=== PATIENT | female | born 1970 | race Caucasian/White ===

== ENCOUNTER 2017-04-08 18:15 | Inpatient (IN) | payer MEDICAID, MEDICARE ==
[2017-04-08] MEDS ORDERED: Sodium Chloride 0.9% 1,000 ML IV ONE (18:42)
[2017-04-08 19:12] LABS: % BASOPHILS 0.9 % (0.0-2.0); % EOSINOPHILS 0.6 % (0.0-5.0); % LYMPHOCYTES 34.7 % (20.0-50.0); % MONOCYTES 12.9 % (2.0-10.0); % NEUTROPHILS 50.9 % (40.0-80.0); HEMATOCRIT 40.4 % (35.0-45.0); HEMOGLOBIN 13.4 gm/dL (11.7-15.5); MEAN CORPUSCULAR HEMOGLOBIN 28.9 pg (27.0-31.0); MEAN CORPUSCULAR HGB CONC 33.2 pg (28.0-36.0); MEAN PLATELET VOLUME 7.3 fl; NEUTROPHILE ABSOLUTE 2.6 Th/cmm (1.8-8.0); PLATELET COUNT 281 Th/cmm (150-400); RED BLOOD COUNT 4.65 Mil/cmm (3.80-5.10); RED CELL DISTRIBUTION WIDTH 13.2 % (11.5-20.0); WHITE BLOOD COUNT 4.9 Th/cmm (4.8-10.8)
[2017-04-08 19:28] LABS: ALB/GLOB RATIO 1.5 (1.0-1.8); ALKALINE PHOSPHATASE 82 U/L (34-104); AMYLASE SERUM 49 U/L (29-103); ANION GAP 9.6 (7.0-16.0); BILIRUBIN,TOTAL 0.2 mg/dL (0.3-1.0); BUN - UREA NITROGEN 25 mg/dL (7-25); CALCIUM SERUM 9.5 mg/dL (8.6-10.3); CARBON DIOXIDE 24.1 mEq/L (21.0-31.0); CHLORIDE 105 mEq/L (98-107); CREATININE - SERUM 0.5 mg/dL (0.6-1.2); GLUCOSE 106 mg/dL (70-105); SGOT 35 U/L (13-39); SGPT/ALT 18 U/L (7-52); SODIUM SERUM 136 mEq/L (136-145)
[2017-04-08 19:32] LABS: POTASSIUM SERUM 2.7 mEq/L (3.5-5.1)
[2017-04-08] MEDS ORDERED: Potassium Chloride Elixir 20 mEq /15 mL UDC PO ONE (19:36)
--- NOTE | 2017-04-08 19:47 | ED Physician Chart ---
Chief Complaint/HPI - Patient Information Date Seen:: 04/08/17 Time Seen:: 19:00 Chief Complaint:: vomiting History of Present Illness:: THIS IS A 47 YO MICROCEPHIALIC FEMALE WITH PROFOUND MENTAL RETARDATION SENT HERE FROM THE LONG-TERM FOR EVALUATION AND TREATMENT. SHE HAS A HISTORY OF GERD, GASTRITIS,ANEMIA AND SEIZURE DISORDER. Allergies:: Allergies Allergy/AdvReac Type Severity Reaction Status Date / Time bug bites Allergy Uncoded 04/08/17 18:31 chocolate Allergy Uncoded 04/08/17 18:32 Vitals:: Vital Signs - 8 hr 04/08/17 18:32 Temp 99.2 F HR 94 RR 19 BP 112/60 O2 Sat % 100 Historian:: Medical Records Review:: Nurse's Note Reviewed, Old Chart Reviewed, Transfer documents Reviewed Review of Systems - Review of Systems General/Constitutional: No fever, No chills, No weight loss, No weakness, No diaphoresis, No edema, No loss of appetite, Other (THIS PATIENT IS UNABLE TO GIVE A REVIEW OF SYSTEMS.) Skin: No skin lesions, No rash, No bruising Head: No headache, No light-headedness Eyes: No loss of vision, No pain, No diplopia ENT: No earache, No nasal drainage, No sore throat, No tinnitus Neck: No neck pain, No swelling, No thyromegaly, No stiffness, No mass noted Cardio Vascular: No chest pain, No palpitations, No PND, No orthopnea, No edema Pulmonary: No SOB, No cough, No sputum, No wheezing GI: No nausea, No vomiting, No diarrhea, No pain, No melena, No hematochezia, No constipation, No hematemesis G/U: No dysuria, No frequency, No hematuria Musculoskeletal: No bone or joint pain, No back pain, No muscle pain Endocrine: No polyuria, No polydipsia Psychiatric: No prior psych history, No depression, No anxiety, No suicidal ideation Hematopoietic: No bruising, No lymphadenopathy Allergic/Immuno: No urticaria, No angioedema Neurological: No syncope, No focal symptoms, No weakness, No paresthesia, No headache, No seizure, No dizziness, No confusion, No vertigo Past Medical History - Past Medical History Obtainable: Yes Past Medical History: PUD/GERD, Seizures, Dementia Family History: None Social History: Non Smoker, No Alcohol, No Drug Use, Care Facility Surgical History: None Psychiatricy History: Dementia Medication: Reviewed Family Medical History - Family Member Mother History Unknown: Yes Physical Exam - Physical Examination General/Constitutional: Awake, Well-developed, well-nourished, Alert, No distress, GCS 15, Non-toxic appearing, Ambulatory Other Gen/Cons comments:: NON-VERBAL AND MENTALLY NOT RESPONSE TO VOICE OR SIGNS OF COMMUNICATION. Head: Atraumatic Eyes: Lids, conjuctiva normal, PERRL, EOMI Skin: Nl inspection, No rash, No skin lesions, No ecchymosis, Well hydrated, No lymphadenopathy ENMT: External ears, nose nl, Nasal exam nl, Lips, teeth, gums nl Neck: Nontender, Full ROM w/o pain, No JVD, No nuchal rigidity, No bruit, No mass, No stridor Respiratory: Nl effort/Exclusion, Clear to Auscultation, No Wheeze/Rhonchi/Rales Cardio Vascular: RRR, No murmur, gallop, rubs, NL S1 S2 GI: No tenderness/rebounding/guarding, No organomegaly, No hernia, Normal BS's, Nondistended, No mass/bruits, No McBurney tenderness : No CVA tenderness Extremities: No tenderness or effusion, Full ROM, normal strength in all extremities, No edema, Normal digits & nails Other Extremities comments:: EXTREMITIES ARE CONTRACTED WITH SEVERE MUSCLE LOSS. Neuro/Psych: Alert/oriented, DTR's symmetric, Normal sensory exam, Normal motor strength, Judgement/insight normal, Mood normal, Normal gait, No focal deficits Misc: normal gait, Normal back, No paraspinal tenderness Labs/Radiology/EKG Results - Lab Results Results: Laboratory Tests 04/08/17 04/08/17 04/08/17 19:04 19:04 19:04 WBC 4.9 RBC 4.65 Hgb 13.4 Hct 40.4 MCV 87.0 MCH 28.9 MCHC Differential 33.2 RDW 13.2 Plt Count 281 MPV 7.3 Neutrophils % 50.9 Lymphocytes % 34.7 Monocytes % 12.9 H Eosinophils % 0.6 Basophils % 0.9 Sodium 136 Potassium 2.7 L* Chloride 105 Carbon Dioxide 24.1 Anion Gap 9.6 BUN 25 Creatinine 0.5 L Est GFR ( Amer) > 60.0 Est GFR (Non-Af Amer) > 60.0 BUN/Creatinine Ratio 50.0 Glucose 106 H Whole Bld Lactic Acid Calcium 9.5 Total Bilirubin 0.2 L AST 35 ALT 18 Alkaline Phosphatase 82 Total Protein 7.5 Albumin 4.5 Globulin 3.0 Albumin/Globulin Ratio 1.5 Amylase 49 Lipase Serum , Qual NEGATIVE 04/08/17 04/08/17 19:04 19:04 WBC RBC Hgb Hct MCV MCH MCHC Differential RDW Plt Count MPV Neutrophils % Lymphocytes % Monocytes % Eosinophils % Basophils % Sodium Potassium Chloride Carbon Dioxide Anion Gap BUN Creatinine Est GFR ( Amer) Est GFR (Non-Af Amer) BUN/Creatinine Ratio Glucose Whole Bld Lactic Acid 0.70 Calcium Total Bilirubin AST ALT Alkaline Phosphatase Total Protein Albumin Globulin Albumin/Globulin Ratio Amylase Lipase 19 Serum , Qual Assessment - Assessment General Assessment: VOMITING ED Septic Shock - . Is Septic Shock (SBP<90, OR Lactate>4 mmol\L) present?: No - <6hrs of presentation: Vital Signs: Vital Signs - 8 hr 04/08/17 18:32 Temp 99.2 F HR 94 RR 19 BP 112/60 O2 Sat % 100 Reassessment (Disposition) - Reassessment Reassessment Condition:: Improved - Diagnosis Diagnosis:: HYPOKALEMIA DIARRHEA DEMENTIA - Patient Disposition Discharge/Transfer:: Acute Care w/in this hosp Admitting Medical Physician:: Roge Tanner Condition at Disposition:: Improved ED Discharge Plan - Patient Disposition Admit/Discharge/Transfer: Acute Care w/in this hosp Condition at Disposition: Improved
[2017-04-08] MEDS ORDERED: Potassium Chloride Elixir 20 mEq /15 mL UDC ONE (20:00)
[2017-04-08 21:20] LABS: ANION GAP 8.7 (7.0-16.0); BUN - UREA NITROGEN 25 mg/dL (7-25); CALCIUM SERUM 9.5 mg/dL (8.6-10.3); CARBON DIOXIDE 25.4 mEq/L (21.0-31.0); CHLORIDE 105 mEq/L (98-107); CREATININE - SERUM 0.5 mg/dL (0.6-1.2); GLUCOSE 103 mg/dL (70-105); POTASSIUM SERUM 3.1 mEq/L (3.5-5.1); SODIUM SERUM 136 mEq/L (136-145)
[2017-04-08] MEDS ORDERED: D5-0.45NS 1,000 ML IV SCH (21:50)
[2017-04-09] MEDS ORDERED: Non-Formulary Item 1 EA (Oxybenzone/Padimate O [Sunscreen Spf8 Lotion] 120 ML) TP PRN (08:01)
[2017-04-09] MEDS ORDERED: Fleet Enema 135 mL RC PRN (08:01)
--- NOTE | 2017-04-09 08:49 | Internal Medicine Prog Note ---
Internal Medicine Subjective - Subjective Service Date: 04/09/17 ([id number]) Internal Medicine Objective - Results Result Diagrams: 04/08/17 19:04 04/08/17 21:00 Recent Labs: Laboratory Last Values WBC 4.9 Th/cmm (4.8-10.8) 04/08/17 19:04 RBC 4.65 Mil/cmm (3.80-5.10) 04/08/17 19:04 Hgb 13.4 gm/dL (11.7-15.5) 04/08/17 19:04 Hct 40.4 % (35.0-45.0) 04/08/17 19:04 MCV 87.0 fl (81-100) 04/08/17 19:04 MCH 28.9 pg (27.0-31.0) 04/08/17 19:04 MCHC Differential 33.2 pg (28.0-36.0) 04/08/17 19:04 RDW 13.2 % (11.5-20.0) 04/08/17 19:04 Plt Count 281 Th/cmm (150-400) 04/08/17 19:04 MPV 7.3 fl 04/08/17 19:04 Neutrophils % 50.9 % (40.0-80.0) 04/08/17 19:04 Lymphocytes % 34.7 % (20.0-50.0) 04/08/17 19:04 Monocytes % 12.9 % (2.0-10.0) H 04/08/17 19:04 Eosinophils % 0.6 % (0.0-5.0) 04/08/17 19:04 Basophils % 0.9 % (0.0-2.0) 04/08/17 19:04 Sodium 136 mEq/L (136-145) 04/08/17 21:00 Potassium 3.1 mEq/L (3.5-5.1) L 04/08/17 21:00 Chloride 105 mEq/L (98-107) 04/08/17 21:00 Carbon Dioxide 25.4 mEq/L (21.0-31.0) 04/08/17 21:00 Anion Gap 8.7 (7.0-16.0) 04/08/17 21:00 BUN 25 mg/dL (7-25) 04/08/17 21:00 Creatinine 0.5 mg/dL (0.6-1.2) L 04/08/17 21:00 Est GFR ( Amer) > 60.0 ml/min (>90) 04/08/17 21:00 Est GFR (Non-Af Amer) > 60.0 ml/min 04/08/17 21:00 BUN/Creatinine Ratio 50.0 04/08/17 21:00 Glucose 103 mg/dL (70-105) 04/08/17 21:00 Whole Bld Lactic Acid 0.70 mmol/L (0.60-1.99) 04/08/17 19:04 Calcium 9.5 mg/dL (8.6-10.3) 04/08/17 21:00 Total Bilirubin 0.2 mg/dL (0.3-1.0) L 04/08/17 19:04 AST 35 U/L (13-39) 04/08/17 19:04 ALT 18 U/L (7-52) 04/08/17 19:04 Alkaline Phosphatase 82 U/L (34-104) 04/08/17 19:04 Total Protein 7.5 gm/dL (6.0-8.3) 04/08/17 19:04 Albumin 4.5 gm/dL (3.7-5.3) 04/08/17 19:04 Globulin 3.0 gm/dL 04/08/17 19:04 Albumin/Globulin Ratio 1.5 (1.0-1.8) 04/08/17 19:04 Amylase 49 U/L (29-103) 04/08/17 19:04 Lipase 19 U/L (11-82) 04/08/17 19:04 Serum , Qual NEGATIVE (NEGATIVE) 04/08/17 19:04 Stool Occult Blood NEGATIVE (NEGATIVE) 04/08/17 21:30 - Physical Exam Vitals and I&O: Vital Signs Temp 97.8 F 04/09/17 04:21 Pulse 90 04/09/17 04:21 Resp 18 04/09/17 04:21 BP 122/58 04/09/17 04:21 Pulse Ox 97 04/09/17 04:21 Intake & Output 04/08/17 04/09/17 04/09/17 18:59 06:59 18:59 Weight (lbs) 103 lb 4.8 oz 98 lb Other: # Voids 1 # Bowel Movements 0 Stool Characteristics Liquid Liquid Brown Brown Active Medications: Current Medications Acetaminophen (Tylenol) 650 mg PO Q4HR PRN PRN Reason: TEMP >100 Stop: 06/08/17 08:00 Ascorbic Acid (Vitamin C) 500 mg PO BID [facility] Stop: 06/08/17 08:59 Bisacodyl (Dulcolax 10 Mg Supp) 10 mg RC PRN PRN PRN Reason: IF MOM INEFFECTIVE Stop: 06/08/17 08:00 Ferrous Sulfate (Iron) 325 mg PO BID [facility] Stop: 06/08/17 08:59 Dextrose/Sodium Chloride (D5-0.45ns) 1,000 mls @ 100 mls/hr IV .Q10H [facility] Stop: 06/07/17 21:49 Last Admin: 04/08/17 23:44 Dose: 100 mls/hr Magnesium Hydroxide (Milk Of Magnesia) 30 ml PO HS [facility] Stop: 06/08/17 20:59 Miscellaneous (Calcium Carb/Vitamin D3/Vit K1 [Calcium + D Soft Chewable Tab]) 1 each PO BID [facility] Stop: 06/08/17 08:59 Miscellaneous (Esomeprazole Magnesium [Nexium]) 40 mg PO HS [facility] Stop: 06/08/17 20:59 Miscellaneous (Multivitamin [Tab-A-Ronnie]) 1 tab PO DAILY [facility] Stop: 06/08/17 08:59 Sodium Phosphate (Fleet Enema) 135 ml RC PRN PRN PRN Reason: IF DULCOLAX INEFFECTIVE Stop: 06/08/17 08:00 Internal Medicine Assmt/Plan - Assessment Assessment: GASTROENTERITIS HYPOKALEMIA SEIZURES GERD VOMITING
[2017-04-09] MEDS ORDERED: Ipratropium Neb 0.5 mg/2.5 mL UD IH PRN (08:50)
[2017-04-09] MEDS ORDERED: Albuterol Nebulizer 2.5mg/3mL IH PRN (08:50)
[2017-04-09] MEDS ORDERED: MULTIVITAMIN PO SCH (09:00)
[2017-04-09 09:06] LABS: ANION GAP 6.7 (7.0-16.0); BUN - UREA NITROGEN 24 mg/dL (7-25); CALCIUM SERUM 8.8 mg/dL (8.6-10.3); CARBON DIOXIDE 23.5 mEq/L (21.0-31.0); CHLORIDE 109 mEq/L (98-107); CREATININE - SERUM 0.5 mg/dL (0.6-1.2); GLUCOSE 109 mg/dL (70-105); POTASSIUM SERUM 3.2 mEq/L (3.5-5.1); SODIUM SERUM 136 mEq/L (136-145)
[2017-04-09 09:20] LABS: % BASOPHILS 0.8 % (0.0-2.0); % MONOCYTES 13.7 % (2.0-10.0); % NEUTROPHILS 45.5 % (40.0-80.0); HEMOGLOBIN 11.5 gm/dL (11.7-15.5); MEAN CELL VOLUME 86.9 fl (81-100); MEAN CORPUSCULAR HEMOGLOBIN 29.4 pg (27.0-31.0); MEAN CORPUSCULAR HGB CONC 33.8 pg (28.0-36.0); MEAN PLATELET VOLUME 7.5 fl; NEUTROPHILE ABSOLUTE 2.2 Th/cmm (1.8-8.0); PLATELET COUNT 269 Th/cmm (150-400); RED BLOOD COUNT 3.93 Mil/cmm (3.80-5.10); WHITE BLOOD COUNT 4.6 Th/cmm (4.8-10.8)
[2017-04-09 09:24] LABS: HEMATOCRIT 34.2 % (35.0-45.0)
[2017-04-09] MEDS: Multivitamin Tab PO SCH (09:48)
[2017-04-09] MEDS: Ferrous Sulfate 325 MG TAB PO SCH ×2 (09:48→16:45)
[2017-04-09] MEDS: Calcium Carb/Vit D 500 mg/200 U Tab PO SCH ×2 (09:48→16:45)
--- NOTE | 2017-04-09 10:34 | History & Physical ---
ADMIT DATE: 04/09/2017 CHIEF COMPLAINT: Vomiting and diarrhea. HISTORY OF PRESENT ILLNESS: This is a 47-year-old female who is a resident of [facility] who has a 1-day history of vomiting and diarrhea. The patient did not have any fevers in the intermediate. For this reason, the patient is now admitted to the med/surg unit. PAST MEDICAL HISTORY: GERD, seizures, dementia. SOCIAL HISTORY: The patient is a intermediate resident, requiring 24-hour nursing care. PAST SURGICAL HISTORY: Unknown. MEDICATIONS: Please see medication reconciliation sheet. FAMILY HISTORY: Noncontributory. REVIEW OF SYSTEMS: Unable to obtain due to patient's mental status. PHYSICAL EXAMINATION: GENERAL: The patient is well developed, well nourished, no acute distress. VITAL SIGNS: Temperature , heart rate 90, blood pressure 122/58, O2 97%. HEENT: Head; normocephalic, atraumatic. NECK: Supple. No mass. LUNGS: Clear bilaterally. HEART: Regular rhythm. ABDOMEN: Soft, nontender. ASSESSMENT: Vomiting, intractable diarrhea, hypokalemia, seizures, gastroesophageal reflux disease. PLAN: The patient to be admitted to the med/surg unit. We will collect stool for C. diff and stool for O and P, keep the patient on IV fluids for hydration. We will place the patient on Cipro IV. We will monitor the patient's electrolyte levels. [facility]# [id number]
--- NOTE | 2017-04-09 10:58 | Diagnostic Imaging Report ---
KUB single view HISTORY: Constipation COMPARISON: None FINDINGS: Diffuse gaseous distended loops of bowel are seen. No significant stool identified. Distended stomach is also noted. Spinal scoliosis is noted. 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 IMPRESSION: Diffuse gaseous distended loops of bowel probably due to a chronic generalized ileus. No significant stool identified.
--- NOTE | 2017-04-09 11:04 | Consultation ---
DATE OF CONSULTATION: 04/09/2017 REQUESTING PHYSICIAN: Dr. Roge Tanner. REASON FOR CONSULTATION: Nausea, vomiting and diarrhea. HISTORY OF PRESENT ILLNESS: A 47-year-old female with history of mental retardation and cerebral palsy who is nonverbal, admitted for nausea, vomiting and diarrhea from her nursing facility. PAST MEDICAL HISTORY: As above, also notable for seizure disorder, GERD, and encephalopathy and chronic anemia. ALLERGIES: Bug bites and chocolate. CURRENT MEDICATIONS: Here are Tylenol, albuterol, vitamin C, Dulcolax suppository p.r.n., Os-Cristian with vitamin D, Cipro, iron, D5 1/2 NS, IV fluids, Atrovent, milk of magnesia, multivitamin, Protonix, and Fleet enema p.r.n. SOCIAL HISTORY: No known tobacco, alcohol or drugs. [facility] resident. FAMILY HISTORY: Noncontributory. REVIEW OF SYSTEMS: Negative. PHYSICAL EXAMINATION: VITAL SIGNS: Temperature of 97.8, blood pressure is 122/58, pulse is 90, respirations 18, O2 sat is 97%. GENERAL: The patient is well-developed, chronically ill-appearing, small statured female, in no acute distress. CARDIOVASCULAR: Regular rate and rhythm. LUNGS: With occasional rhonchi at the base. ABDOMEN: Soft, nontender, nondistended. EXTREMITIES: Contractured, but no edema. RECTAL: Deferred. LABORATORY DATA AND IMAGING: WBC is 4.9, hemoglobin 13.4, platelet count is 281, creatinine is normal. Liver enzymes are normal. Stool OB is negative. Serum test is negative. Amylase and lipase are normal. IMPRESSION: 1. Nausea, vomiting and diarrhea, rule out acute gastroenteritis. Also, rule out partial bowel obstruction or fecal impaction. 2. Mentally retardation with encephalopathy and seizure disorder. 3. History of gastroesophageal reflux disease and gastritis. RECOMMENDATIONS: 1. We will obtain a KUB to rule out fecal impaction. 2. Clear liquid diet for now. 3. Protonix. 4. Antiemetics. 5. Check stool studies, if diarrhea persists. Thank you, Dr. Roge Tanner, for involving us in the care of your patient. If you have any further questions, please call us. JOB# [id number]
[2017-04-09] MEDS: Ciprofloxacin 200mg Premix PB 200 MG/100 ML BAG IV SCH ×2 (11:05→20:45)
[2017-04-09] MEDS ORDERED: guaiFENesin 200 MG/10 ML UDC PO PRN (11:55)
[2017-04-09] MEDS: D5-0.45NS 1,000 ML IV SCH (13:30)
[2017-04-09] MEDS: Magnesium Hydroxide (MOM) 30 mL UDC PO SCH (20:46)
[2017-04-09] MEDS: Pantoprazole 40 mg EC Tab PO SCH (20:46)
[2017-04-09] MEDS ORDERED: Non-Formulary Item 1 EA (Esomeprazole Magnesium [Nexium] 40 MG) PO SCH (21:00)
[2017-04-10] MEDS: D5-0.45NS 1,000 ML IV SCH ×2 (03:38→21:09)
[2017-04-10 07:09] LABS: % BASOPHILS 0.8 % (0.0-2.0); % EOSINOPHILS 1.2 % (0.0-5.0); % LYMPHOCYTES 41.6 % (20.0-50.0); % MONOCYTES 12.6 % (2.0-10.0); % NEUTROPHILS 43.8 % (40.0-80.0); HEMATOCRIT 32.4 % (35.0-45.0); HEMOGLOBIN 11.1 gm/dL (11.7-15.5); MEAN CELL VOLUME 85.2 fl (81-100); MEAN CORPUSCULAR HEMOGLOBIN 29.2 pg (27.0-31.0); MEAN CORPUSCULAR HGB CONC 34.3 pg (28.0-36.0); MEAN PLATELET VOLUME 7.5 fl; NEUTROPHILE ABSOLUTE 1.9 Th/cmm (1.8-8.0); PLATELET COUNT 251 Th/cmm (150-400); WHITE BLOOD COUNT 4.3 Th/cmm (4.8-10.8)
[2017-04-10 07:41] LABS: ANION GAP 6.6 (7.0-16.0); BUN - UREA NITROGEN 7 mg/dL (7-25); BUN/CREATININE RATIO 17.5; CALCIUM SERUM 8.9 mg/dL (8.6-10.3); CARBON DIOXIDE 25.4 mEq/L (21.0-31.0); CHLORIDE 108 mEq/L (98-107); CREATININE - SERUM 0.4 mg/dL (0.6-1.2); GLUCOSE 106 mg/dL (70-105); SODIUM SERUM 137 mEq/L (136-145)
[2017-04-10] MEDS: Calcium Carb/Vit D 500 mg/200 U Tab PO SCH ×2 (09:41→16:39)
[2017-04-10] MEDS: Ciprofloxacin 200mg Premix PB 200 MG/100 ML BAG IV SCH ×2 (09:41→21:13)
[2017-04-10] MEDS: Multivitamin Tab PO SCH (09:41)
[2017-04-10] MEDS: Ferrous Sulfate 325 MG TAB PO SCH ×2 (09:41→16:39)
--- NOTE | 2017-04-10 12:32 | Internal Medicine Prog Note ---
Internal Medicine Subjective - Subjective Service Date: 04/10/17 (patient was assessed, no signs of abuse noted) Patient seen and examined:: with staff Patient is:: awake Per staff patient has:: no adverse event Internal Medicine Objective - Results Result Diagrams: 04/10/17 06:43 04/10/17 06:43 Recent Labs: Laboratory Last Values WBC 4.3 Th/cmm (4.8-10.8) L 04/10/17 06:43 RBC 3.80 Mil/cmm (3.80-5.10) 04/10/17 06:43 Hgb 11.1 gm/dL (11.7-15.5) L 04/10/17 06:43 Hct 32.4 % (35.0-45.0) L 04/10/17 06:43 MCV 85.2 fl (81-100) 04/10/17 06:43 MCH 29.2 pg (27.0-31.0) 04/10/17 06:43 MCHC Differential 34.3 pg (28.0-36.0) 04/10/17 06:43 RDW 13.0 % (11.5-20.0) 04/10/17 06:43 Plt Count 251 Th/cmm (150-400) 04/10/17 06:43 MPV 7.5 fl 04/10/17 06:43 Neutrophils % 43.8 % (40.0-80.0) 04/10/17 06:43 Lymphocytes % 41.6 % (20.0-50.0) 04/10/17 06:43 Monocytes % 12.6 % (2.0-10.0) H 04/10/17 06:43 Eosinophils % 1.2 % (0.0-5.0) 04/10/17 06:43 Basophils % 0.8 % (0.0-2.0) 04/10/17 06:43 Sodium 137 mEq/L (136-145) 04/10/17 06:43 Potassium 3.0 mEq/L (3.5-5.1) L 04/10/17 06:43 Chloride 108 mEq/L (98-107) H 04/10/17 06:43 Carbon Dioxide 25.4 mEq/L (21.0-31.0) 04/10/17 06:43 Anion Gap 6.6 (7.0-16.0) L 04/10/17 06:43 BUN 7 mg/dL (7-25) 04/10/17 06:43 Creatinine 0.4 mg/dL (0.6-1.2) L 04/10/17 06:43 Est GFR ( Amer) > 60.0 ml/min (>90) 04/10/17 06:43 Est GFR (Non-Af Amer) > 60.0 ml/min 04/10/17 06:43 BUN/Creatinine Ratio 17.5 04/10/17 06:43 Glucose 106 mg/dL (70-105) H 04/10/17 06:43 Whole Bld Lactic Acid 0.70 mmol/L (0.60-1.99) 04/08/17 19:04 Calcium 8.9 mg/dL (8.6-10.3) 04/10/17 06:43 Total Bilirubin 0.2 mg/dL (0.3-1.0) L 04/08/17 19:04 AST 35 U/L (13-39) 04/08/17 19:04 ALT 18 U/L (7-52) 04/08/17 19:04 Alkaline Phosphatase 82 U/L (34-104) 04/08/17 19:04 Total Protein 7.5 gm/dL (6.0-8.3) 04/08/17 19:04 Albumin 4.5 gm/dL (3.7-5.3) 04/08/17 19:04 Globulin 3.0 gm/dL 04/08/17 19:04 Albumin/Globulin Ratio 1.5 (1.0-1.8) 04/08/17 19:04 Amylase 49 U/L (29-103) 04/08/17 19:04 Lipase 19 U/L (11-82) 04/08/17 19:04 Serum , Qual NEGATIVE (NEGATIVE) 04/08/17 19:04 Stool Occult Blood NEGATIVE (NEGATIVE) 04/08/17 21:30 - Physical Exam Vitals and I&O: Vital Signs Temp 97.0 F 04/10/17 08:00 Pulse 72 04/10/17 08:00 Resp 18 04/10/17 08:00 BP 98/55 04/10/17 08:00 Pulse Ox 95 04/10/17 08:00 Intake & Output 04/09/17 04/10/17 04/10/17 18:59 06:59 18:59 Intake Total 200 1089.333 Balance 200 1089.333 Weight (lbs) 98 lb 98 lb Intake: Intake, IV Amount 100 1089.333 Ciprofloxacin 200mg 100 100 Premix PB 200 mg In 100 ml @ 100 mls/hr IV Q12HR [facility] Rx#:[id number] D5-0.45NS 1,000 ml @ 70 989.333 mls/hr IV .[id number] [facility] Rx #:[id number] Oral 100 Other: # Voids 2 # Bowel Movements 1 Stool Characteristics Liquid Brown Active Medications: Current Medications Acetaminophen (Tylenol) 650 mg PO Q4HR PRN PRN Reason: TEMP >100 Stop: 06/08/17 08:00 Last Admin: 04/10/17 00:34 Dose: 650 mg Acetaminophen (Tylenol) 650 mg PO Q4H PRN PRN Reason: Pain Or Fever above 101 Stop: 06/08/17 11:54 Albuterol Sulfate (Albuterol 2.5mg/3ml Neb Ud) 2.5 mg IH Q2HR PRN PRN Reason: Shortness of Breath or Wheeze Stop: 06/08/17 08:49 Ascorbic Acid (Vitamin C) 500 mg PO BID [facility] Stop: 06/08/17 08:59 Last Admin: 04/10/17 09:41 Dose: 500 mg Bisacodyl (Dulcolax 10 Mg Supp) 10 mg RC PRN PRN PRN Reason: IF MOM INEFFECTIVE Stop: 06/08/17 08:00 Calcium/Vitamin D (Oscal W/Vitamin D) 1 tab PO BID [facility] Stop: 06/08/17 08:59 Last Admin: 04/10/17 09:41 Dose: 1 tab Ferrous Sulfate (Iron) 325 mg PO BID [facility] Stop: 06/08/17 08:59 Last Admin: 04/10/17 09:41 Dose: 325 mg Guaifenesin (Robitussin) 200 mg PO Q4HR PRN PRN Reason: Cough or Congestion Stop: 06/08/17 11:54 Ciprofloxacin (Cipro 200mg Premix Pb) 200 mg in 100 mls @ 100 mls/hr IV Q12HR [facility] Stop: 06/08/17 08:59 Last Admin: 04/10/17 09:41 Dose: 100 mls/hr Dextrose/Sodium Chloride (D5-0.45ns) 1,000 mls @ 70 mls/hr IV .[id number] [facility] Stop: 06/07/17 21:49 Last Admin: 04/10/17 03:38 Dose: 70 mls/hr Ipratropium [place] (Atrovent Neb 0.5mg/2.5ml) 0.5 mg IH Q2HR PRN PRN Reason: Shortness of Breath or Wheeze Stop: 06/08/17 08:49 Magnesium Hydroxide (Milk Of Magnesia) 30 ml PO HS [facility] Stop: 06/08/17 20:59 Last Admin: 04/09/17 20:46 Dose: 30 ml Multivitamins/Vitamin C (Theragran) 1 tab PO DAILY [facility] Stop: 06/08/17 08:59 Last Admin: 04/10/17 09:41 Dose: 1 tab Ondansetron HCl (Zofran) 4 mg IV Q8H PRN PRN Reason: Nausea / Vomiting Stop: 06/08/17 11:54 Pantoprazole Sodium (Protonix) 40 mg PO HS [facility] Stop: 06/08/17 20:59 Last Admin: 04/09/17 20:46 Dose: 40 mg Sodium Phosphate (Fleet Enema) 135 ml RC PRN PRN PRN Reason: IF DULCOLAX INEFFECTIVE Stop: 06/08/17 08:00 General: NAD HEENT: NC/AT, PERRLA Neck: Supple Lungs: CTAB Cardiovascular: RRR, Normal S1, Normal S2, without murmur Abdomen: soft, non-tender, non-distended Extremities: excoriation Neurological: no change, unable to follow command Internal Medicine Assmt/Plan - Assessment Assessment: GASTROENTERITIS HYPOKALEMIA SEIZURES GERD VOMITING - Plan Plan: continue ivabx awaiting for stool cx
[2017-04-10] MEDS ORDERED: KCL 20mEq/100mL Premix 20 MEQ/100 ML PIGGYBACK IV SCH ×2 (18:34→21:00)
[2017-04-10] MEDS: Pantoprazole 40 mg EC Tab PO SCH ×2 (21:14→21:23)
[2017-04-10] MEDS: Magnesium Hydroxide (MOM) 30 mL UDC PO SCH ×2 (21:15→21:23)
[2017-04-10] MEDS: KCL 20mEq/100mL Premix 20 MEQ/100 ML PIGGYBACK IV SCH (23:21)
[2017-04-11] MEDS: KCL 20mEq/100mL Premix 20 MEQ/100 ML PIGGYBACK IV SCH (04:51)
[2017-04-11] MEDS: Calcium Carb/Vit D 500 mg/200 U Tab PO SCH ×2 (08:46→16:56)
[2017-04-11] MEDS: Multivitamin Tab PO SCH (08:47)
[2017-04-11] MEDS: Ferrous Sulfate 325 MG TAB PO SCH ×2 (08:47→16:56)
[2017-04-11] MEDS: Ciprofloxacin 200mg Premix PB 200 MG/100 ML BAG IV SCH ×2 (08:55→20:31)
--- NOTE | 2017-04-11 14:31 | Internal Medicine Prog Note ---
Internal Medicine Subjective - Subjective Service Date: 04/11/17 Patient is:: awake Per staff patient has:: no adverse event Internal Medicine Objective - Results Result Diagrams: 04/10/17 06:43 04/10/17 06:43 Recent Labs: Laboratory Last Values WBC 4.3 Th/cmm (4.8-10.8) L 04/10/17 06:43 RBC 3.80 Mil/cmm (3.80-5.10) 04/10/17 06:43 Hgb 11.1 gm/dL (11.7-15.5) L 04/10/17 06:43 Hct 32.4 % (35.0-45.0) L 04/10/17 06:43 MCV 85.2 fl (81-100) 04/10/17 06:43 MCH 29.2 pg (27.0-31.0) 04/10/17 06:43 MCHC Differential 34.3 pg (28.0-36.0) 04/10/17 06:43 RDW 13.0 % (11.5-20.0) 04/10/17 06:43 Plt Count 251 Th/cmm (150-400) 04/10/17 06:43 MPV 7.5 fl 04/10/17 06:43 Neutrophils % 43.8 % (40.0-80.0) 04/10/17 06:43 Lymphocytes % 41.6 % (20.0-50.0) 04/10/17 06:43 Monocytes % 12.6 % (2.0-10.0) H 04/10/17 06:43 Eosinophils % 1.2 % (0.0-5.0) 04/10/17 06:43 Basophils % 0.8 % (0.0-2.0) 04/10/17 06:43 Sodium 137 mEq/L (136-145) 04/10/17 06:43 Potassium 3.0 mEq/L (3.5-5.1) L 04/10/17 06:43 Chloride 108 mEq/L (98-107) H 04/10/17 06:43 Carbon Dioxide 25.4 mEq/L (21.0-31.0) 04/10/17 06:43 Anion Gap 6.6 (7.0-16.0) L 04/10/17 06:43 BUN 7 mg/dL (7-25) 04/10/17 06:43 Creatinine 0.4 mg/dL (0.6-1.2) L 04/10/17 06:43 Est GFR ( Amer) > 60.0 ml/min (>90) 04/10/17 06:43 Est GFR (Non-Af Amer) > 60.0 ml/min 04/10/17 06:43 BUN/Creatinine Ratio 17.5 04/10/17 06:43 Glucose 106 mg/dL (70-105) H 04/10/17 06:43 Whole Bld Lactic Acid 0.70 mmol/L (0.60-1.99) 04/08/17 19:04 Calcium 8.9 mg/dL (8.6-10.3) 04/10/17 06:43 Total Bilirubin 0.2 mg/dL (0.3-1.0) L 04/08/17 19:04 AST 35 U/L (13-39) 04/08/17 19:04 ALT 18 U/L (7-52) 04/08/17 19:04 Alkaline Phosphatase 82 U/L (34-104) 04/08/17 19:04 Total Protein 7.5 gm/dL (6.0-8.3) 04/08/17 19:04 Albumin 4.5 gm/dL (3.7-5.3) 04/08/17 19:04 Globulin 3.0 gm/dL 04/08/17 19:04 Albumin/Globulin Ratio 1.5 (1.0-1.8) 04/08/17 19:04 Amylase 49 U/L (29-103) 04/08/17 19:04 Lipase 19 U/L (11-82) 04/08/17 19:04 Serum , Qual NEGATIVE (NEGATIVE) 04/08/17 19:04 Stool Occult Blood NEGATIVE (NEGATIVE) 04/08/17 21:30 - Physical Exam Vitals and I&O: Vital Signs Temp 98.1 F 04/11/17 12:00 Pulse 63 04/11/17 12:00 Resp 19 04/11/17 12:00 BP 157/72 04/11/17 12:00 Pulse Ox 97 04/11/17 12:00 Intake & Output 04/10/17 04/11/17 04/11/17 18:59 06:59 18:59 Intake Total 1100 200 Balance 1100 200 Weight (lbs) 98 lb 102 lb 9.6 oz Intake: Intake, IV Amount 1100 200 Ciprofloxacin 200mg 100 100 Premix PB 200 mg In 100 ml @ 100 mls/hr IV Q12HR [facility] Rx#:[id number] D5-0.45NS 1,000 ml @ 70 1000 mls/hr IV .[id number] [facility] Rx #:[id number] KCL 20mEq/100mL Premix 20 100 meq In 100 ml @ 50 mls/ hr IV Q2H [facility] Rx#: [id number] Other: # Voids 2 # Bowel Movements 0 Active Medications: Current Medications Acetaminophen (Tylenol) 650 mg PO Q4H PRN PRN Reason: Pain Or Fever above 101 Stop: 06/08/17 11:54 Last Admin: 04/11/17 08:47 Dose: 650 mg Albuterol Sulfate (Albuterol 2.5mg/3ml Neb Ud) 2.5 mg IH Q2HR PRN PRN Reason: Shortness of Breath or Wheeze Stop: 06/08/17 08:49 Ascorbic Acid (Vitamin C) 500 mg PO BID [facility] Stop: 06/08/17 08:59 Last Admin: 04/11/17 08:46 Dose: 500 mg Bisacodyl (Dulcolax 10 Mg Supp) 10 mg RC PRN PRN PRN Reason: IF MOM INEFFECTIVE Stop: 06/08/17 08:00 Calcium/Vitamin D (Oscal W/Vitamin D) 1 tab PO BID [facility] Stop: 06/08/17 08:59 Last Admin: 04/11/17 08:46 Dose: 1 tab Ferrous Sulfate (Iron) 325 mg PO BID [facility] Stop: 06/08/17 08:59 Last Admin: 04/11/17 08:47 Dose: 325 mg Guaifenesin (Robitussin) 200 mg PO Q4HR PRN PRN Reason: Cough or Congestion Stop: 06/08/17 11:54 Ciprofloxacin (Cipro 200mg Premix Pb) 200 mg in 100 mls @ 100 mls/hr IV Q12HR [facility] Stop: 06/08/17 08:59 Last Admin: 04/11/17 08:55 Dose: 100 mls/hr Dextrose/Sodium Chloride (D5-0.45ns) 1,000 mls @ 70 mls/hr IV .[id number] [facility] Stop: 06/07/17 21:49 Last Admin: 04/10/17 21:09 Dose: 70 mls/hr Ipratropium Harrison (Atrovent Neb 0.5mg/2.5ml) 0.5 mg IH Q2HR PRN PRN Reason: Shortness of Breath or Wheeze Stop: 06/08/17 08:49 Magnesium Hydroxide (Milk Of Magnesia) 30 ml PO HS [facility] Stop: 06/08/17 20:59 Last Admin: 04/10/17 21:23 Dose: Not Given Multivitamins/Vitamin C (Theragran) 1 tab PO DAILY [facility] Stop: 06/08/17 08:59 Last Admin: 04/11/17 08:47 Dose: 1 tab Ondansetron HCl (Zofran) 4 mg IV Q8H PRN PRN Reason: Nausea / Vomiting Stop: 06/08/17 11:54 Pantoprazole Sodium (Protonix) 40 mg PO HS [facility] Stop: 06/08/17 20:59 Last Admin: 04/10/17 21:23 Dose: Not Given Sodium Phosphate (Fleet Enema) 135 ml RC PRN PRN PRN Reason: IF DULCOLAX INEFFECTIVE Stop: 06/08/17 08:00 General: NAD HEENT: NC/AT, PERRLA Neck: Supple Lungs: CTAB Cardiovascular: RRR, Normal S1, Normal S2, without murmur Abdomen: soft, non-tender, non-distended Extremities: excoriation Neurological: no change, unable to follow command Internal Medicine Assmt/Plan - Assessment Assessment: GASTROENTERITIS HYPOKALEMIA SEIZURES GERD VOMITING - Plan Plan: continue ivabx awaiting for stool cx ivf for hydration am labs
[2017-04-11] MEDS: Pantoprazole 40 mg EC Tab PO SCH (20:33)
[2017-04-11] MEDS: Magnesium Hydroxide (MOM) 30 mL UDC PO SCH (20:33)
[2017-04-12 07:20] LABS: HEMATOCRIT 33.3 % (35.0-45.0); HEMOGLOBIN 11.1 gm/dL (11.7-15.5); MEAN CELL VOLUME 86.7 fl (81-100); MEAN CORPUSCULAR HGB CONC 33.4 pg (28.0-36.0); MEAN PLATELET VOLUME 7.9 fl; PLATELET COUNT 254 Th/cmm (150-400); RED BLOOD COUNT 3.84 Mil/cmm (3.80-5.10); RED CELL DISTRIBUTION WIDTH 12.9 % (11.5-20.0); WHITE BLOOD COUNT 4.4 Th/cmm (4.8-10.8)
[2017-04-12 07:44] LABS: BUN - UREA NITROGEN 3 mg/dL (7-25); BUN/CREATININE RATIO 7.5; CALCIUM SERUM 8.8 mg/dL (8.6-10.3); CARBON DIOXIDE 23.9 mEq/L (21.0-31.0); CHLORIDE 108 mEq/L (98-107); CREATININE - SERUM 0.4 mg/dL (0.6-1.2); GLUCOSE 93 mg/dL (70-105); POTASSIUM SERUM 3.9 mEq/L (3.5-5.1); SODIUM SERUM 138 mEq/L (136-145)
[2017-04-12] MEDS: D5-0.45NS 1,000 ML IV SCH (08:42)
[2017-04-12] MEDS: Ciprofloxacin 200mg Premix PB 200 MG/100 ML BAG IV SCH (08:43)
[2017-04-12] MEDS: Calcium Carb/Vit D 500 mg/200 U Tab PO SCH (08:45)
[2017-04-12] MEDS: Ferrous Sulfate 325 MG TAB PO SCH (08:45)
[2017-04-12] MEDS: Multivitamin Tab PO SCH (08:45)
[2017-04-12 09:56] LABS: EOSINOPHIL 1 % (0-5); NEUTROPHILS 44 % (40-80); TOTAL CELLS COUNTED 100
[2017-04-12 09:57] LABS: PLATELET ESTIMATE ADEQUATE (NORMAL); PLATELET MORPHOLOGY NORMAL (NORMAL)
--- NOTE | 2017-04-12 13:26 | Internal Medicine Prog Note ---
Internal Medicine Subjective - Subjective Service Date: 04/12/17 (nm [id number]) Patient is:: awake Per staff patient has:: no adverse event Internal Medicine Objective - Results Result Diagrams: 04/12/17 06:00 04/12/17 06:00 Recent Labs: Laboratory Last Values WBC 4.4 Th/cmm (4.8-10.8) L 04/12/17 06:00 RBC 3.84 Mil/cmm (3.80-5.10) 04/12/17 06:00 Hgb 11.1 gm/dL (11.7-15.5) L 04/12/17 06:00 Hct 33.3 % (35.0-45.0) L 04/12/17 06:00 MCV 86.7 fl (81-100) 04/12/17 06:00 MCH 29.0 pg (27.0-31.0) 04/12/17 06:00 MCHC Differential 33.4 pg (28.0-36.0) 04/12/17 06:00 RDW 12.9 % (11.5-20.0) 04/12/17 06:00 Plt Count 254 Th/cmm (150-400) 04/12/17 06:00 MPV 7.9 fl 04/12/17 06:00 Neutrophils % 43.8 % (40.0-80.0) 04/10/17 06:43 Lymphocytes % 41.6 % (20.0-50.0) 04/10/17 06:43 Monocytes % 12.6 % (2.0-10.0) H 04/10/17 06:43 Eosinophils % 1.2 % (0.0-5.0) 04/10/17 06:43 Basophils % 0.8 % (0.0-2.0) 04/10/17 06:43 Neutrophils (Manual) 44 % (40-80) 04/12/17 06:00 Lymphocytes 48 % (20-50) 04/12/17 06:00 Monocytes 7 % (2-10) 04/12/17 06:00 Eosinophils 1 % (0-5) 04/12/17 06:00 Platelet Estimate ADEQUATE (NORMAL) 04/12/17 06:00 Platelet Morphology NORMAL (NORMAL) 04/12/17 06:00 RBC Morph Micro Appear NORMAL (NORMAL) 04/12/17 06:00 Sodium 138 mEq/L (136-145) 04/12/17 06:00 Potassium 3.9 mEq/L (3.5-5.1) 04/12/17 06:00 Chloride 108 mEq/L (98-107) H 04/12/17 06:00 Carbon Dioxide 23.9 mEq/L (21.0-31.0) 04/12/17 06:00 Anion Gap 10.0 (7.0-16.0) 04/12/17 06:00 BUN 3 mg/dL (7-25) L 04/12/17 06:00 Creatinine 0.4 mg/dL (0.6-1.2) L 04/12/17 06:00 Est GFR ( Amer) > 60.0 ml/min (>90) 04/12/17 06:00 Est GFR (Non-Af Amer) > 60.0 ml/min 04/12/17 06:00 BUN/Creatinine Ratio 7.5 04/12/17 06:00 Glucose 93 mg/dL (70-105) 04/12/17 06:00 Whole Bld Lactic Acid 0.70 mmol/L (0.60-1.99) 04/08/17 19:04 Calcium 8.8 mg/dL (8.6-10.3) 04/12/17 06:00 Total Bilirubin 0.2 mg/dL (0.3-1.0) L 04/08/17 19:04 AST 35 U/L (13-39) 04/08/17 19:04 ALT 18 U/L (7-52) 04/08/17 19:04 Alkaline Phosphatase 82 U/L (34-104) 04/08/17 19:04 Total Protein 7.5 gm/dL (6.0-8.3) 04/08/17 19:04 Albumin 4.5 gm/dL (3.7-5.3) 04/08/17 19:04 Globulin 3.0 gm/dL 04/08/17 19:04 Albumin/Globulin Ratio 1.5 (1.0-1.8) 04/08/17 19:04 Amylase 49 U/L (29-103) 04/08/17 19:04 Lipase 19 U/L (11-82) 04/08/17 19:04 Serum , Qual NEGATIVE (NEGATIVE) 04/08/17 19:04 Stool Occult Blood NEGATIVE (NEGATIVE) 04/08/17 21:30 - Physical Exam Vitals and I&O: Vital Signs Temp 97.2 F 04/12/17 11:50 Pulse 72 04/12/17 11:50 Resp 18 04/12/17 11:50 BP 93/63 04/12/17 07:42 Pulse Ox 94 04/12/17 11:50 Intake & Output 04/11/17 04/12/17 04/12/17 18:59 06:59 18:59 Intake Total 1200 100 Output Total 1 Balance 1199 100 Weight (lbs) 102 lb 6.4 oz Intake: Intake, IV Amount 1100 100 Ciprofloxacin 200mg 100 100 Premix PB 200 mg In 100 ml @ 100 mls/hr IV Q12HR [facility] Rx#:[id number] D5-0.45NS 1,000 ml @ 70 1000 mls/hr IV .[id number] [facility] Rx #:[id number] Oral 100 Output: Stool 0 Emesis 1 Other: # Voids 3 # Bowel Movements 0 Active Medications: Current Medications Acetaminophen (Tylenol) 650 mg PO Q4H PRN PRN Reason: Pain Or Fever above 101 Stop: 06/08/17 11:54 Last Admin: 04/11/17 08:47 Dose: 650 mg Albuterol Sulfate (Albuterol 2.5mg/3ml Neb Ud) 2.5 mg IH Q2HR PRN PRN Reason: Shortness of Breath or Wheeze Stop: 06/08/17 08:49 Ascorbic Acid (Vitamin C) 500 mg PO BID [facility] Stop: 06/08/17 08:59 Last Admin: 04/12/17 08:45 Dose: 500 mg Bisacodyl (Dulcolax 10 Mg Supp) 10 mg RC PRN PRN PRN Reason: IF MOM INEFFECTIVE Stop: 06/08/17 08:00 Calcium/Vitamin D (Oscal W/Vitamin D) 1 tab PO BID [facility] Stop: 06/08/17 08:59 Last Admin: 04/12/17 08:45 Dose: 1 tab Ferrous Sulfate (Iron) 325 mg PO BID [facility] Stop: 06/08/17 08:59 Last Admin: 04/12/17 08:45 Dose: 325 mg Guaifenesin (Robitussin) 200 mg PO Q4HR PRN PRN Reason: Cough or Congestion Stop: 06/08/17 11:54 Ciprofloxacin (Cipro 200mg Premix Pb) 200 mg in 100 mls @ 100 mls/hr IV Q12HR [facility] Stop: 06/08/17 08:59 Last Admin: 04/12/17 08:43 Dose: 100 mls/hr Dextrose/Sodium Chloride (D5-0.45ns) 1,000 mls @ 70 mls/hr IV .[id number] [facility] Stop: 06/07/17 21:49 Last Admin: 04/12/17 08:42 Dose: 70 mls/hr Ipratropium [place] (Atrovent Neb 0.5mg/2.5ml) 0.5 mg IH Q2HR PRN PRN Reason: Shortness of Breath or Wheeze Stop: 06/08/17 08:49 Magnesium Hydroxide (Milk Of Magnesia) 30 ml PO HS [facility] Stop: 06/08/17 20:59 Last Admin: 04/11/17 20:33 Dose: Not Given Multivitamins/Vitamin C (Theragran) 1 tab PO DAILY [facility] Stop: 06/08/17 08:59 Last Admin: 04/12/17 08:45 Dose: 1 tab Ondansetron HCl (Zofran) 4 mg IV Q8H PRN PRN Reason: Nausea / Vomiting Stop: 06/08/17 11:54 Last Admin: 04/11/17 18:33 Dose: 4 mg Pantoprazole Sodium (Protonix) 40 mg PO HS [facility] Stop: 06/08/17 20:59 Last Admin: 04/11/17 20:33 Dose: 40 mg Sodium Phosphate (Fleet Enema) 135 ml RC PRN PRN PRN Reason: IF DULCOLAX INEFFECTIVE Stop: 06/08/17 08:00 General: NAD HEENT: NC/AT, PERRLA Neck: Supple Lungs: CTAB Cardiovascular: RRR, Normal S1, Normal S2, without murmur Abdomen: soft, non-tender, non-distended Extremities: excoriation Neurological: no change, unable to follow command Internal Medicine Assmt/Plan - Assessment Assessment: GASTROENTERITIS HYPOKALEMIA SEIZURES GERD VOMITING - Plan Plan: continue ivabx awaiting for stool cx ivf for hydration am labs
--- NOTE | 2017-04-12 20:13 | Discharge Summary ---
DATE OF DISCHARGE: 04/12/[address] Roge Tanner. DISCHARGE DIAGNOSES: Vomiting, which has resolved; intractable diarrhea, resolved; hypokalemia, resolved; and seizures . HISTORY OF PRESENT ILLNESS: This is a 47-year-old female, a resident of [facility] who has a 1-day history of vomiting and diarrhea. The patient did not have any fevers in the detention. PHYSICAL EXAMINATION: GENERAL: The patient is a well-developed, well-nourished, in no acute distress. VITAL SIGNS: Stable. HEENT: Head is normocephalic and atraumatic. NECK: Supple. No mass. LUNGS: Clear bilaterally. HEART: ____ ABDOMEN: Soft and nontender. HOSPITAL COURSE: During the hospital stay, the patient was admitted to the Med/Surg unit. The patient had a GI consultation with Dr. Coles. His plan of care for this patient was to have a KUB. The patient had a KUB done and the impression is diffuse gaseous distended loops of bowel, probably due to chronic generalized ileus, no significant stool identified. The patient did not have any episodes of any diarrhea or any vomiting during this hospital stay. The patient was kept on IV fluids for hydration. MRSA of the nares were negative. The patient was cleared to be discharged. CONDITION UPON DISCHARGE: Fair. DISPOSITION: [facility]. JOB# [id number]
== END 2017-04-12 15:00 | disposition home or self-care (01) | DRG 249 ==
LOC: ER 18:15 → MSI 21:50
PROVIDERS: ADMIT Internal Medicine; ATTEND Internal Medicine
DX: K52.9 Noninfective gastroenteritis and colitis, unspecified (principal); G93.40 Encephalopathy, unspecified; R53.2 Functional quadriplegia; K56.69 Other intestinal obstruction; F03.90 Unspecified dementia, unspecified severity, without behavioral disturbance, psychotic disturbance, mood disturbance, and anxiety; F73 Profound intellectual disabilities; K63.89 Other specified diseases of intestine; E87.6 Hypokalemia; G40.909 Epilepsy, unspecified, not intractable, without status epilepticus; K21.9 Gastro-esophageal reflux disease without esophagitis; G80.9 Cerebral palsy, unspecified; Z91.018 Allergy to other foods; Z91.038 Other insect allergy status
CPT/HCPCS: 36415-UA; 74000-TC; 80048-TC; 80053-TC; 82150-TC; 82270-TC; 83605; 83690-TC; 84703-TC; 85007-TC; 85025-TC; 85027-TC; 87230-TC; 94760; 96374; J0744; J2405; J3480; Z7610